=== PATIENT | male | born 1990 | race Hispanic/Latino ===

== ENCOUNTER 2019-10-10 21:20 | Inpatient (IN) | payer OTHER ==
[~2019-10-10] VITALS: Ht 177.8 cm; Wt 107.0 kg
[2019-10-10] MEDS ORDERED: THIAMINE HCL 100 MG TABLET ONE (22:11)
[2019-10-10 22:16] LABS: BASOPHILS % (AUTO) 0.4 % (0.0-5.0); EOSINOPHILS % (AUTO) 0.5 % (0.0-8.0); HEMATOCRIT 46.9 % (42-54); LYMPHOCYTES % (AUTO) 16.6 % (21.0-51.0); MEAN CORPUSCULAR HGB CONC 34.5 g/dL (32.0-36.0); MEAN CORPUSCULAR VOLUME 84.1 fL (79-99); NEUTROPHILS % (AUTO) 73.2 % (40.0-77.0); PLATELET COUNT (AUTO) 386 K/uL (130-400); RED BLOOD CELL COUNT(AUTO) 5.58 MIL/uL (4.50-6.20); RED CELL DISTRIBUTION WIDTH 12.9 % (11.0-15.5); WHITE BLOOD COUNT (AUTO) 14.7 K/uL (4.8-10.8)
[2019-10-10 22:25] LABS: CARBON DIOXIDE 17 mmol/L (21-32); CHLORIDE 98 mmol/L (101-111); CREATININE 1.7 mg/dL (0.5-1.5); GLOMERULAR FILTR. RATE CALC 51 mL/min (>60); GLUCOSE,RANDOM 161 mg/dL (70-105); POTASSIUM 3.2 mmol/L (3.5-5.1); SODIUM SERUM 135 mmol/L (136-145); UREA NITROGEN, BLOOD 31 mg/dL (7-18)
[2019-10-10] MEDS ORDERED: ACETAMINOPHEN EXTRA STRENGTH 500 MG TABLET ONE (22:35)
[2019-10-10] MEDS ORDERED: SODIUM CHLORIDE 0.9% 1000ML 1,000 ML IV ONE (22:35)
[2019-10-10 22:39] LABS: ALANINE AMINOTRANSFERASE 29 U/L (12-78); ALBUMIN 5.2 g/dL (3.5-5.0); ASPARTATE AMINOTRANSFERASE 18 U/L (10-37); BILIRUBIN,TOTAL 0.6 mg/dL (0.2-1.0); TOTAL PROTEIN, SERUM 9.5 g/dL (6.0-8.3)
[2019-10-10 22:45] LABS: ALCOHOL, BLOOD < 3 mg/dL (0-10); CREATINE KINASE, TOTAL 435 U/L (21-232)
[2019-10-10 23:00] LABS: SALICYLATE 3.3 mg/dL (2.8-20.0)
[2019-10-10 23:01] LABS: ACETAMINOPHEN < 1 mcg/mL (10-29)
[2019-10-10 23:25] LABS: APPEARANCE,URINE SLIGHTLY CLOUDY (CLEAR); BILIRUBIN,URINE Moderate (NEGATIVE); COLOR,URINE Dark Yellow (YELLOW); GLUCOSE, URINE (UA) Negative (NEGATIVE); KETONES,URINE 40 mg/dL (NEGATIVE); LEUKOCYTE ESTERASE ,URINE Trace (NEGATIVE); NITRATE,URINE Negative (NEGATIVE); OCCULT BLOOD,URINE Moderate (NEGATIVE); PH,URINE 5.5 (5.0-8.0); PROTEIN,URINE 300 mg/dL (NEGATIVE)
[2019-10-10 23:42] LABS: AMPHET/METH SCREEN,URINE NEGATIVE (NEGATIVE); BARBITURATE SCREEN, URINE NEGATIVE (NEGATIVE); BENZODIAZEPINES SCREEN,URINE NEGATIVE (NEGATIVE); CANNABINOID SCREEN,URINE POSITIVE (NEGATIVE); COCAINE SCREEN,URINE NEGATIVE (NEGATIVE); OPIATE SCREEN,URINE NEGATIVE (NEGATIVE); PHENCYCLIDINE SCREEN,URINE NEGATIVE (NEGATIVE)
[2019-10-10 23:51] LABS: BACTERIA,URINE Few /HPF (None Seen)
[2019-10-10 23:56] LABS: MUCUS,URINE Rare LPF (None Seen)
[2019-10-11 02:45] VITALS: BP 149/100
[2019-10-11] MEDS ORDERED: LORAZEPAM 2 MG/ML 1 ML VIAL ONE (03:20)
--- NOTE | 2019-10-11 03:21 | NUR ---
anxiety patient having hallucinations and conversations with him self, anxious, restless, agitated,climbing out of bed, patients mother at bedside, requesting anxiety medications, ativan 1 mg ivp given slowly via right wrist 20 gauge catheter , ivf infusing well, bed alarm
[2019-10-11 03:39] LABS: BILIRUBIN,TOTAL 0.6 mg/dL (0.2-1.0); CREATININE 1.3 mg/dL (0.5-1.5); POTASSIUM 3.1 mmol/L (3.5-5.1)
[2019-10-11 04:09] LABS: HEMATOCRIT 45.2 % (42-54); MEAN CORPUSCULAR HEMOGLOBIN 29.8 pg (27.0-33.0); MEAN CORPUSCULAR VOLUME 85.1 fL (79-99); PLATELET COUNT (AUTO) 371 K/uL (130-400); RED BLOOD CELL COUNT(AUTO) 5.31 MIL/uL (4.50-6.20); RED CELL DISTRIBUTION WIDTH 12.9 % (11.0-15.5)
[2019-10-11] MEDS: SODIUM CHLORIDE 0.9% 1000ML 1,000 ML IV SCH ×2 (04:15→21:35)
[2019-10-11] MEDS ORDERED: SODIUM CHLORIDE 0.9% 1000ML 1,000 ML IV SCH (04:15)
--- NOTE | 2019-10-11 04:15 | NUR ---
MED EFFECT PATIENT LESS AGITATED, CONTINUE WITH HALLUCINATIONS , 1:1 AT BEDSIDE, CONTINUE WITH IVF ORDERED NS AT 100 CC/HR
[2019-10-11] MEDS ORDERED: HALOPERIDOL LACTATE 5 MG/ML VIAL ONE (05:08)
[2019-10-11] MEDS ORDERED: POTASSIUM CHLORIDE 20 MEQ ERTAB PO ONE (05:10)
--- NOTE | 2019-10-11 05:14 | NUR ---
anxiety patient very anxious , hallucinations, pulling iv , having conservation by himself, confused, dr. lópez called with orders , HALDOL 2 MG IVP GIVEN SLOWLY
--- NOTE | 2019-10-11 05:55 | NUR ---
MED EFFECT PATIENT LESS ANXIOUS, LAYING IN BED, NO SOB, NO C/O PAIN, IVF INFUSING WELL
[2019-10-11] MEDS ORDERED: CLONIDINE HCL 0.1 MG TABLET PO SCH (06:00)
--- NOTE | 2019-10-11 06:00 | NUR ---
MD ROUND DR. CONKLIN TO SEE AND EXAMEN PATIENT WITH ORDERS
[2019-10-11] MEDS ORDERED: LIDOCAINE HCL-MPF 1% 2ML VIAL IV PRN (06:15)
[2019-10-11] MEDS ORDERED: POTASSIUM CHLORIDE 10% ELIXIR 20 MEQ/15 ML UDCUP PO PRN (06:15)
[2019-10-11] MEDS ORDERED: POTASSIUM CHLORIDE 20MEQ/100ML 100 ML IV PRN (06:15)
[2019-10-11] MEDS ORDERED: POTASSIUM CHLORIDE 10% ELIXIR 20 MEQ/15 ML UDCUP ONE (06:28)
[2019-10-11 08:00] VITALS: BP 138/91
[2019-10-11] MEDS: HALOPERIDOL LACTATE 5 MG/ML VIAL IV PRN (08:41)
[2019-10-11] MEDS: CLONIDINE HCL 0.1 MG TABLET PO SCH ×3 (10:24→21:37)
[2019-10-11] MEDS: THIAMINE HCL 100 MG/ML 2ML VIAL IV SCH ×3 (10:26→21:35)
[2019-10-11] MEDS: CEFTRIAXONE SODIUM 1 GM IVP SCH (10:29)
[2019-10-11 11:46] VITALS: BP 119/77
[2019-10-11] MEDS: DIPHENHYDRAMINE HCL 25 MG CAPSULE PO PRN (12:06)
[2019-10-11] MEDS: RISPERIDONE 1 MG TABLET PO SCH ×2 (12:07→21:36)
[2019-10-11] MEDS: POTASSIUM CHLORIDE 20 MEQ ERTAB PO PRN ×2 (12:08→19:28)
[2019-10-11 16:30] VITALS: BP 125/82
--- NOTE | 2019-10-11 16:48 | NUR ---
D/C PLAN CM spoke to patient's mother Shandra Mahan via telephone. Pt with AMS. Mother states pt was previously ind. with ADL's and living with her. Reports pt was previously following up with Dr. Parsons for medical needs. CM provided verbal community resources. Mother verbalized understanding. States pt will return home with her at discharge. No needs verbalized or identified. CM to f/u. Addendum: 10/11/19 at 1650 by ALEXANDER VALENCIA CM Amended: Links added.
[2019-10-11 20:00] VITALS: BP 143/77
[2019-10-12] VITALS (7 sets, daily range): BP systolic 116–161; BP diastolic 59–92
[2019-10-12] MEDS: LORAZEPAM 2 MG/ML 1 ML VIAL IVP PRN ×2 (01:40→11:41)
[2019-10-12 05:23] LABS: BASOPHILS % (AUTO) 0.7 % (0.0-5.0); HEMATOCRIT 40.6 % (42-54); LYMPHOCYTES % (AUTO) 31.3 % (21.0-51.0); MEAN CORPUSCULAR HEMOGLOBIN 29.6 pg (27.0-33.0); MEAN CORPUSCULAR VOLUME 86.9 fL (79-99); MONOCYTES % (AUTO) 10.2 % (3.0-13.0); NEUTROPHILS % (AUTO) 55.5 % (40.0-77.0); PLATELET COUNT (AUTO) 280 K/uL (130-400); RED BLOOD CELL COUNT(AUTO) 4.67 MIL/uL (4.50-6.20); RED CELL DISTRIBUTION WIDTH 13.1 % (11.0-15.5); WHITE BLOOD COUNT (AUTO) 10.4 K/uL (4.8-10.8)
[2019-10-12 05:47] LABS: BILIRUBIN,TOTAL 0.6 mg/dL (0.2-1.0); CREATININE 1.1 mg/dL (0.5-1.5); POTASSIUM 3.8 mmol/L (3.5-5.1); TOTAL PROTEIN, SERUM 7.2 g/dL (6.0-8.3)
[2019-10-12] MEDS: CLONIDINE HCL 0.1 MG TABLET PO SCH ×3 (10:19→20:30)
[2019-10-12] MEDS: RISPERIDONE 1 MG TABLET PO SCH (10:19)
[2019-10-12] MEDS: THIAMINE HCL 100 MG/ML 2ML VIAL IV SCH ×3 (10:19→20:30)
[2019-10-12] MEDS: CEFTRIAXONE SODIUM 1 GM IVP SCH (10:22)
[2019-10-12] MEDS: HALOPERIDOL LACTATE 5 MG/ML VIAL IV PRN ×2 (10:35→13:46)
[2019-10-12] MEDS: DIPHENHYDRAMINE HCL 25 MG CAPSULE PO PRN (10:42)
--- NOTE | 2019-10-12 12:00 | NUR ---
PER DR CONKLIN CALLED POISON CONTROL. SPOKE WITH MONIQUE AT POISON CONTROL REGARDING "THC WAX" (DABBING) THAT THE MOTHER FOUND IN PT ROOM. DISCUSSED SYMPTOMS OF AGITATION, ANXIOUSNESS, AND RESTLESSNESS. MONIQUE IS GOING TO CALL TO CALL THE [employer]INE[employer] FOR MORE INFORMATION AND RECOMMENDATIONS. PENDING CALL BACK.
[2019-10-12] MEDS: SODIUM CHLORIDE 0.9% 1000ML 1,000 ML IV SCH ×2 (12:09→20:15)
--- NOTE | 2019-10-12 12:30 | NUR ---
POISON CONTROL: MONIQUE CALLED BACK AND INFORMED ME THAT SHOBHA THE DEAN OF [employer]UDENT [employer] SAID THC WAX IS VERY CONCENTRATED AND TAKES A WHILE TO GET OUT OF THE BODY SYSTEM. RECOMMENCED BENZO TO DECREASE THE PT SYMPTOMS.
--- NOTE | 2019-10-12 13:38 | NUR ---
SPOKE WITH DR CONKLIN REGARDING INFORMATION GIVEN BY POISON CONTROL.
[2019-10-12] MEDS ORDERED: DIAZEPAM 5 MG TABLET PO PRN (14:30)
[2019-10-12] MEDS: DIAZEPAM 5 MG TABLET PO SCH ×2 (17:02→21:57)
[2019-10-13] MEDS: SODIUM CHLORIDE 0.9% 1000ML 1,000 ML IV SCH ×3 (02:25→21:54)
[2019-10-13 04:06] VITALS: BP 141/81
--- NOTE | 2019-10-13 04:30 | NUR ---
BEHAVIOR Pt has episode of agitation,redirected per staff.Overall he was calm and able to follow directions from staff.
--- NOTE | 2019-10-13 06:26 | NUR ---
MD Dr CONKLIN came,updated on pt status.
[2019-10-13] MEDS ORDERED: SODIUM CHLORIDE 0.9% 1000ML 1,000 ML IV SCH (06:30)
[2019-10-13 07:08] LABS: BASOPHILS % (AUTO) 0.8 % (0.0-5.0); HEMATOCRIT 38.6 % (42-54); LYMPHOCYTES % (AUTO) 33.9 % (21.0-51.0); MEAN CORPUSCULAR HEMOGLOBIN 28.7 pg (27.0-33.0); MEAN CORPUSCULAR HGB CONC 32.9 g/dL (32.0-36.0); MEAN CORPUSCULAR VOLUME 87.1 fL (79-99); MONOCYTES % (AUTO) 9.8 % (3.0-13.0); NEUTROPHILS % (AUTO) 52.3 % (40.0-77.0); PLATELET COUNT (AUTO) 272 K/uL (130-400); RED BLOOD CELL COUNT(AUTO) 4.43 MIL/uL (4.50-6.20); RED CELL DISTRIBUTION WIDTH 12.8 % (11.0-15.5); WHITE BLOOD COUNT (AUTO) 8.4 K/uL (4.8-10.8)
[2019-10-13 07:21] LABS: ALBUMIN 4.1 g/dL (3.5-5.0); BILIRUBIN,TOTAL 0.5 mg/dL (0.2-1.0); POTASSIUM 3.8 mmol/L (3.5-5.1); TOTAL PROTEIN, SERUM 7.1 g/dL (6.0-8.3)
[2019-10-13 08:00] VITALS: BP 129/69
[2019-10-13] MEDS: THIAMINE HCL 100 MG/ML 2ML VIAL IV SCH ×2 (09:00→21:54)
[2019-10-13] MEDS: CLONIDINE HCL 0.1 MG TABLET PO SCH ×2 (09:00→21:55)
[2019-10-13] MEDS: DIAZEPAM 5 MG TABLET PO SCH (09:02)
[2019-10-13] MEDS: CEFTRIAXONE SODIUM 1 GM IVP SCH (09:11)
--- NOTE | 2019-10-13 11:36 | NUR ---
SAY Notification - poor appetite Pt admitted with psychosis, hallucinations, oriented to place and time, Rhabdo. Pt with improved appetite, no report of GI distress, PO intake @100%. Pt LBM 10/11/19. SAY to continue to monitor. Please notify as additional nutrition concerns arise. Thank you. Addendum: 10/13/19 at [address] Amended: Links added.
[2019-10-13 11:55] VITALS: BP 153/61
--- NOTE | 2019-10-13 12:00 | NUR ---
DR. CONKLIN SPOKE TO MD REGARDING BRADYCARDIA, HEART RATE RANGING 40'S-50'S. VITALS SIGNS BP 153/61, RR 16, O2 SAT 96% ON ROOM AIR, TEMP 98.3F. INFORMED MD THAT PATIENT APPEARS DROWSY AND SLEEPY, BUT IS AROUSABLE TO NORMAL VOICE AND SHAKING. PATIENT WILL BRIEFLY WAKE UP AND ABLE TO FOLLOW COMMANDS, BUT THEN PATIENT WILL FALL BACK TO SLEEP. DR. CONKLIN REPLIED TO CALL DR. VILLANUEVA BECAUSE PATIENT MAY NEED VALIUM DOSE ADJUSTMENT.
--- NOTE | 2019-10-13 12:10 | NUR ---
DR. VILLANUEVA SPOKE TO MD TO REPORT PATIENT SYMPTOMS BRADYCARDIA, VITAL SIGNS, PATIENTS APPEARS VERY DROWSY AND SLEEPY. PATIENT IS AROUSABLE TO NORMAL VOICE AND SHAKING AND ABLE TO FOLLOW COMMANDS, BUT PATIENT WILL FALL BACK TO SLEEP. ORDERS RECEIVED VIA TELEPHONE/RB TO STOP SCHEDULED VALIUM AND START ATIVAN 1MG IV Q4H PRN ANXIETY/AGITATION.
[2019-10-13] MEDS ORDERED: LORAZEPAM 2 MG/ML 1 ML VIAL IVP PRN (13:15)
[2019-10-13 16:00] VITALS: BP 148/74
[2019-10-13 19:53] VITALS: BP 129/70
--- NOTE | 2019-10-13 19:59 | NUR ---
MD Dr Garzon came to see pt.No new order.
[2019-10-13 23:25] VITALS: BP 112/64
--- NOTE | 2019-10-14 02:32 | NUR ---
CALM Pt awake,alert oriented x 3.Denies any discomfort.
[2019-10-14 03:47] VITALS: BP 127/70
[2019-10-14 04:09] LABS: EOSINOPHILS % (AUTO) 2.9 % (0.0-8.0); HEMATOCRIT 39.2 % (42-54); LYMPHOCYTES % (AUTO) 31.3 % (21.0-51.0); MEAN CORPUSCULAR HEMOGLOBIN 29.2 pg (27.0-33.0); MEAN CORPUSCULAR HGB CONC 33.7 g/dL (32.0-36.0); MEAN CORPUSCULAR VOLUME 86.7 fL (79-99); MONOCYTES % (AUTO) 8.4 % (3.0-13.0); NEUTROPHILS % (AUTO) 56.1 % (40.0-77.0); PLATELET COUNT (AUTO) 305 K/uL (130-400); RED BLOOD CELL COUNT(AUTO) 4.52 MIL/uL (4.50-6.20); RED CELL DISTRIBUTION WIDTH 12.4 % (11.0-15.5); WHITE BLOOD COUNT (AUTO) 10.1 K/uL (4.8-10.8)
[2019-10-14 04:35] LABS: ALBUMIN 3.9 g/dL (3.5-5.0); BILIRUBIN,TOTAL 0.6 mg/dL (0.2-1.0); CREATININE 1.1 mg/dL (0.5-1.5); POTASSIUM 3.4 mmol/L (3.5-5.1); TOTAL PROTEIN, SERUM 7.2 g/dL (6.0-8.3)
[2019-10-14] MEDS: POTASSIUM CHLORIDE 20 MEQ ERTAB PO PRN (05:42)
--- NOTE | 2019-10-14 06:33 | NUR ---
MD Dr CONKLIN came and said pt is medically cleared for discharge.Pt is pending [facility] for psyche evaluation.
[2019-10-14 08:21] VITALS: BP 138/74
[2019-10-14] MEDS: THIAMINE HCL 100 MG/ML 2ML VIAL IV SCH ×2 (09:00→14:00)
[2019-10-14] MEDS: CLONIDINE HCL 0.1 MG TABLET PO SCH ×2 (10:55→14:00)
[2019-10-14] MEDS: CEFTRIAXONE SODIUM 1 GM IVP SCH (10:58)
--- NOTE | 2019-10-14 11:20 | NUR ---
[facility] CALLED [facility] TO INFORM PATIENT HAS BEEN MEDICALLY CLEARED FOR [facility] EVALUATION.
[2019-10-14 11:29] VITALS: BP 120/78
[2019-10-14] MEDS: SODIUM CHLORIDE 0.9% 1000ML 1,000 ML IV SCH (12:15)
[2019-10-14 16:06] VITALS: BP 143/85
[2019-10-14 17:20] VITALS: BP 129/86
--- NOTE | 2019-10-14 20:16 | NUR ---
DC Discharge instructions given to pt and mom over the phone.They verbalized understanding.Iv dcd.cath tip intact.Pt dc home in stable condition,aao x 3.
== END 2019-10-14 20:12 | disposition home or self-care (01) | DRG 558 ==
LOC: EDH 21:20 → EDHIP 21:21 → 3AH 10-11 02:32
PROVIDERS: ADMIT Family Medicine; ATTEND Family Medicine
DX: M62.82 Rhabdomyolysis (principal); F29 Unspecified psychosis not due to a substance or known physiological condition; E86.0 Dehydration; E87.6 Hypokalemia; N28.9 Disorder of kidney and ureter, unspecified; D72.829 Elevated white blood cell count, unspecified; F12.10 Cannabis abuse, uncomplicated; F41.9 Anxiety disorder, unspecified; Z79.899 Other long term (current) drug therapy; Z83.3 Family history of diabetes mellitus
CPT/HCPCS: 36415; 71045; 80053; 80305; 81001; 82010; 82550; 83605; 83735; 84484; 85025; 85027; 87040; 93005; G0378; G0480; G0481; J0696; J1630; J2060; J3411; J7030; Q0163

== ENCOUNTER 2020-04-18 01:50 | Emergency (ER) | payer OTHER | END 2020-04-18 02:54 | disposition left against medical advice (07) | LOC: EDH 01:50 | DX: M25.561 Pain in right knee (principal); H57.11 Ocular pain, right eye; F32.9 Major depressive disorder, single episode, unspecified; F41.9 Anxiety disorder, unspecified; Z53.21 Procedure and treatment not carried out due to patient leaving prior to being seen by health care provider ==

== ENCOUNTER 2020-04-18 12:50 | Emergency (ER) | payer OTHER ==
[2020-04-18 14:44] LABS: BASOPHILS % (AUTO) 0.6 % (0.0-5.0); EOSINOPHILS % (AUTO) 0.8 % (0.0-8.0); HEMATOCRIT 44.6 % (42-54); LYMPHOCYTES % (AUTO) 14.3 % (21.0-51.0); MEAN CORPUSCULAR HEMOGLOBIN 29.4 pg (27.0-33.0); MEAN CORPUSCULAR HGB CONC 33.6 g/dL (32.0-36.0); MEAN CORPUSCULAR VOLUME 87.5 fL (79-99); MONOCYTES % (AUTO) 6.6 % (3.0-13.0); NEUTROPHILS % (AUTO) 77.2 % (40.0-77.0); PLATELET COUNT (AUTO) 339 K/uL (130-400); RED CELL DISTRIBUTION WIDTH 13.9 % (11.0-15.5); WHITE BLOOD COUNT (AUTO) 14.3 K/uL (4.8-10.8)
[2020-04-18] MEDS ORDERED: THIAMINE HCL 100 MG/ML 2ML VIAL ONE (14:45)
[2020-04-18 14:53] LABS: MAGNESIUM 1.8 mg/dL (1.80-2.40)
[2020-04-18 14:54] LABS: CREATININE 1.1 mg/dL (0.5-1.5); POTASSIUM 3.8 mmol/L (3.5-5.1)
[2020-04-18 14:55] LABS: INR 0.9 (0.85-1.15); PARTIAL THROMBOPLASTIN TIME 27.8 SEC (26.3-35.5); PROTHROMBIN TIME 9.8 SEC (9.6-11.6)
[2020-04-18 15:08] LABS: ALBUMIN 4.2 g/dL (3.5-5.0); BILIRUBIN,TOTAL 0.7 mg/dL (0.2-1.0); TOTAL PROTEIN, SERUM 7.6 g/dL (6.0-8.3)
[2020-04-18 15:39] LABS: APPEARANCE,URINE Clear (CLEAR); BILIRUBIN,URINE Negative (NEGATIVE); COLOR,URINE Yellow (YELLOW); GLUCOSE, URINE (UA) Negative (NEGATIVE); KETONES,URINE 15 mg/dL (NEGATIVE); LEUKOCYTE ESTERASE ,URINE Negative (NEGATIVE); NITRATE,URINE Negative (NEGATIVE); OCCULT BLOOD,URINE Trace (NEGATIVE); PH,URINE 5.5 (5.0-8.0); PROTEIN,URINE Negative (NEGATIVE)
[2020-04-18 15:46] LABS: AMPHET/METH SCREEN,URINE NEGATIVE (NEGATIVE); BARBITURATE SCREEN, URINE NEGATIVE (NEGATIVE); BENZODIAZEPINES SCREEN,URINE POSITIVE (NEGATIVE); CANNABINOID SCREEN,URINE POSITIVE (NEGATIVE); COCAINE SCREEN,URINE POSITIVE (NEGATIVE); OPIATE SCREEN,URINE NEGATIVE (NEGATIVE); PHENCYCLIDINE SCREEN,URINE NEGATIVE (NEGATIVE)
[2020-04-18 16:08] LABS: BACTERIA,URINE Rare /HPF (None Seen); MUCUS,URINE Rare LPF (None Seen); RBC,URINE None Seen /HPF (0-1); SQUAMOUS EPITHELIAL CELL,UR None Seen /HPF (0-2); WBC,URINE 0-1 /HPF (0-1)
== END 2020-04-18 16:30 | disposition home or self-care (01) ==
LOC: EDH 12:50
DX: S00.12XA Contusion of left eyelid and periocular area, initial encounter (principal); S00.83XA Contusion of other part of head, initial encounter; F10.10 Alcohol abuse, uncomplicated; F14.10 Cocaine abuse, uncomplicated; F41.9 Anxiety disorder, unspecified; F32.9 Major depressive disorder, single episode, unspecified; Z72.0 Tobacco use; Y04.0XXA Assault by unarmed brawl or fight, initial encounter; Y93.89 Activity, other specified; Y92.148 Other place in prison as the place of occurrence of the external cause; Y99.8 Other external cause status
CPT/HCPCS: 36415; 70450; 70486; 72125; 80053; 80305; 81001; 83690; 82550; 83735; 84484; 85025; 85610; 85730; 96365; 96366; 99285; J3411; G0390

== ENCOUNTER 2020-05-13 12:07 | Emergency (ER) | payer OTHER ==
[2020-05-13 13:28] LABS: BASOPHILS % (AUTO) 0.6 % (0.0-5.0); EOSINOPHILS % (AUTO) 0.1 % (0.0-8.0); LYMPHOCYTES % (AUTO) 11.3 % (21.0-51.0); MEAN CORPUSCULAR HEMOGLOBIN 29.5 pg (27.0-33.0); MEAN CORPUSCULAR HGB CONC 34.1 g/dL (32.0-36.0); MEAN CORPUSCULAR VOLUME 86.6 fL (79-99); MONOCYTES % (AUTO) 6.3 % (3.0-13.0); NEUTROPHILS % (AUTO) 81.2 % (40.0-77.0); PLATELET COUNT (AUTO) 418 K/uL (130-400); RED BLOOD CELL COUNT(AUTO) 5.89 MIL/uL (4.50-6.20); RED CELL DISTRIBUTION WIDTH 13.6 % (11.0-15.5); WHITE BLOOD COUNT (AUTO) 17.4 K/uL (4.8-10.8)
[2020-05-13 13:32] LABS: APPEARANCE,URINE CLEAR (CLEAR); BILIRUBIN,URINE MODERATE (NEGATIVE); COLOR,URINE YELLOW (YELLOW); GLUCOSE, URINE (UA) NEGATIVE (NEGATIVE); KETONES,URINE 40 mg/dL (NEGATIVE); LEUKOCYTE ESTERASE ,URINE NEGATIVE (NEGATIVE); NITRATE,URINE NEGATIVE (NEGATIVE); OCCULT BLOOD,URINE SMALL (NEGATIVE); PH,URINE 5.5 (5.0-8.0); PROTEIN,URINE 100 mg/dL (NEGATIVE); UROBILINOGEN,URINE 0.2 mg/dL (0.2-1.0)
[2020-05-13 13:38] LABS: AMPHET/METH SCREEN,URINE NEGATIVE (NEGATIVE); BARBITURATE SCREEN, URINE NEGATIVE (NEGATIVE); BENZODIAZEPINES SCREEN,URINE NEGATIVE (NEGATIVE); CANNABINOID SCREEN,URINE POSITIVE (NEGATIVE); COCAINE SCREEN,URINE NEGATIVE (NEGATIVE); OPIATE SCREEN,URINE NEGATIVE (NEGATIVE); PHENCYCLIDINE SCREEN,URINE NEGATIVE (NEGATIVE)
[2020-05-13 13:45] LABS: CARBON DIOXIDE 25 mmol/L (21-32); CHLORIDE 100 mmol/L (101-111); CREATININE 1.3 mg/dL (0.5-1.5); GLOMERULAR FILTR. RATE CALC 70 mL/min (>60); GLUCOSE,RANDOM 110 mg/dL (70-105); POTASSIUM 3.9 mmol/L (3.5-5.1); SODIUM SERUM 138 mmol/L (136-145); UREA NITROGEN, BLOOD 19 mg/dL (7-18)
[2020-05-13 13:47] LABS: ALANINE AMINOTRANSFERASE 14 U/L (12-78); ALBUMIN 5.3 g/dL (3.5-5.0); ALCOHOL, BLOOD < 3 mg/dL (0-10); ASPARTATE AMINOTRANSFERASE 13 U/L (10-37); BILIRUBIN,TOTAL 0.6 mg/dL (0.2-1.0); CREATINE KINASE, TOTAL 48 U/L (21-232); SALICYLATE 3.8 mg/dL (2.8-20.0); TOTAL PROTEIN, SERUM 9.5 g/dL (6.0-8.3)
[2020-05-13 13:48] LABS: ACETAMINOPHEN < 1 mcg/mL (10-29)
[2020-05-13 13:51] LABS: BACTERIA,URINE Rare /HPF (None Seen); MUCUS,URINE Moderate LPF (None Seen); RBC,URINE 0-1 /HPF (0-1); SQUAMOUS EPITHELIAL CELL,UR Rare /HPF (0-2)
[2020-05-13] MEDS ORDERED: CEFTRIAXONE SODIUM 1 GM ONE (16:15)
[2020-05-13] MEDS ORDERED: ACETAMINOPHEN 325 MG TAB ONE (20:40)
== END 2020-05-13 21:25 | disposition home or self-care (01) ==
LOC: EDH 12:07
DX: F19.10 Other psychoactive substance abuse, uncomplicated (principal); R44.0 Auditory hallucinations; E86.0 Dehydration; F41.9 Anxiety disorder, unspecified; F32.9 Major depressive disorder, single episode, unspecified; Z87.891 Personal history of nicotine dependence
CPT/HCPCS: 36415; 70450; 80053; 80305; 81001; 82550; 83605 ×2; 85025; 87040 ×2; 87088; 96361; 96374; 99284; G0481; J0696

== ENCOUNTER 2020-11-22 01:56 | Emergency (ER) | payer OTHER ==
[2020-11-22] MEDS ORDERED: AMOXICILLIN/POTASSIUM CLAV 500-125 TABLET PO ONE (03:12)
[2020-11-22] MEDS ORDERED: TETANUS/DIPHTHERIA TOXOID [ADULT] 0.5 ML VIAL IM ONE (03:12)
[2020-11-22] MEDS ORDERED: SODIUM CHLORIDE 0.9% 1000ML 1,000 ML IV ONE ×2 (03:13→04:05)
[2020-11-22 03:33] LABS: BASOPHILS % (AUTO) 0.9 % (0.0-5.0); EOSINOPHILS % (AUTO) 1.7 % (0.0-8.0); HEMATOCRIT 45.3 % (42-54); LYMPHOCYTES % (AUTO) 20.1 % (21.0-51.0); MEAN CORPUSCULAR HEMOGLOBIN 30.1 pg (27.0-33.0); MEAN CORPUSCULAR HGB CONC 34.4 g/dL (32.0-36.0); MEAN CORPUSCULAR VOLUME 87.3 fL (79-99); MONOCYTES % (AUTO) 9.9 % (3.0-13.0); NEUTROPHILS % (AUTO) 66.9 % (40.0-77.0); PLATELET COUNT (AUTO) 299 K/uL (130-400); RED BLOOD CELL COUNT(AUTO) 5.19 MIL/uL (4.50-6.20); RED CELL DISTRIBUTION WIDTH 13.2 % (11.0-15.5); WHITE BLOOD COUNT (AUTO) 11.8 K/uL (4.8-10.8)
[2020-11-22 03:42] LABS: CREATININE 1.2 mg/dL (0.5-1.5); POTASSIUM 3.7 mmol/L (3.5-5.1)
[2020-11-22 03:48] LABS: ALBUMIN 4.4 g/dL (3.5-5.0); BILIRUBIN,TOTAL 0.5 mg/dL (0.2-1.0); TOTAL PROTEIN, SERUM 8.5 g/dL (6.0-8.3)
== END 2020-11-22 04:27 | disposition home or self-care (01) ==
LOC: EDH 01:56
DX: S01.511A Laceration without foreign body of lip, initial encounter (principal); E86.0 Dehydration; F41.9 Anxiety disorder, unspecified; F32.9 Major depressive disorder, single episode, unspecified; Z72.0 Tobacco use; X58.XXXA Exposure to other specified factors, initial encounter; Y93.89 Activity, other specified; Y92.89 Other specified places as the place of occurrence of the external cause; Y99.8 Other external cause status
CPT/HCPCS: 36415; 80053; 85025; 90471; 90714; 96360; 99283; J7030 ×2